=== PATIENT | male | born 1990 | race African-American/Black ===

== ENCOUNTER 2017-04-20 09:38 | Emergency (ER) | payer SELFPAY ==
[~2017-04-20] VITALS: Ht 167.6 cm; Wt 97.5 kg
[~2017-04-20 09:38] MED LIST: HYDR-971 PO; ONDA4TAB10 PO; ONDA4TAB7 PO
--- NOTE | 2017-04-20 09:54 | PHYS DOC ---
General Chief Complaint: FLANK PAIN Stated Complaint: flank pain Time Seen by MD: 09:48 Source: patient Exam Limitations: no limitations Problems: History of Present Illness Initial Comments Patient is a 26-year-old male who comes to the ED complaining of flank pain. Patient states that for the past 2 days he's work had worsening flank pain. He states that it comes and goes is described as sharp and crampy, today it is radiating to his left groin and testicle. He's had urinary hesitancy no fever chills sweats or myalgias. No prior history of kidney stones, no bowel symptoms no nausea vomiting. No pre-arrival treatment no exacerbating or relieving factors. Symptoms are described as severe. Timing/Duration: 24 hours Severity: severe Modifying Factors: improves with other Associated Symptoms: other Allergies: Coded Allergies: No Known Drug Allergies (Unverified , 09/07/13) Past Medical History Medical History: no pertinent history Surgical History: other (hip) Social History Smoker: non-smoker Alcohol: none Drugs: none Review of Systems Constitutional: denies chills, denies diaphoresis, denies fever Respiratory: denies cough, denies shortness of breath Cardiovascular: denies chest pain, denies palpitations Gastrointestinal: see HPI Genitourinary: see HPI Musculoskeletal: see HPI Psychiatric/Neurological: denies headache, denies numbness, denies paresthesia Physical Exam General Appearance: no apparent distress, obese Ear, Nose, Throat: hearing grossly normal, normal ENT inspection Neck: non-tender, supple Respiratory: normal breath sounds, no respiratory distress Cardiovascular: normal peripheral pulses, regular rate, rhythm Gastrointestinal: normal bowel sounds, non tender, soft Back: no CVA tenderness, no vertebral tenderness Extremities: normal range of motion, non-tender, normal inspection Neurologic/Psychiatric: executive wellness programs director II-XII nml as tested, no motor/sensory deficits, alert, normal mood/affect, oriented x 3 Skin: normal color, warm/dry Orders, Labs, Meds PATIENT: CEE GUZMAN ACCOUNT: [id number] : 1990 LOCATION: ER AGE: 26 SEX: M EXAM STATUS: PRE ER ORD. PHYSICIAN: YOUSUF MANN DO REASON: flank pain r/o stone PROCEDURE: CT ABDOMEN PELVIS WO CONTRAST CT of the abdomen and pelvis without contrast, 04/20/2017: History: Left flank pain, right inguinal pain Noncontrast scans were obtained utilizing the renal stone protocol. No intrarenal calculi are identified. The renal collecting systems and ureters are not dilated. No ureteral calculus is evident. The partially filled urinary bladder shows no abnormality. The unopacified liver is unremarkable. No gallbladder abnormality is seen. The pancreas is unremarkable. The spleen is of normal size. The bowel loops are not dilated. The appendix is visualized and shows no abnormality. No abdominal adenopathy is seen. No free fluid or free air is evident in the abdomen or pelvis. There are mildly prominent inguinal lymph nodes. The largest of these lies on the left and measures 30 x 18 x 13 mm. There appears to be minimal streaky inflammation in the adjacent fat. These nodes have increased in size since 07/06/2016. There is no CT evidence of an inguinal hernia. There is a surgical pin in the left femoral head/neck. IMPRESSION: 1. No urinary tract calculi are identified. 2. Borderline enlarged inguinal lymph nodes, left greater than right. PQRS Compliance Statement: One or more of the following individualized dose reduction techniques were utilized for this examination: 1. Automated exposure control 2. Adjustment of the mA and/or kV according to patient size 3. Use of iterative reconstruction technique DICTATED AND SIGNED BY: ALEJANDRA GERBER MD DATE: 04/20/17 1006 CC: PCP,NO; YOUSUF MANN DO ~ Labs unremarkable, hearing grossly positive for infection no blood. Given inguinal lymphadenopathy and presence of infection in the urine STI is likely. Patient received Rocephin intravenously and Zithromax 1 g by mouth has been ordered. We'll discharge with Pyridium and instructions for no sexual contact until he follows up with his doctor. He is advised to be tested for HIV as an outpatient expressed agreement and understanding with the treatment plan. Departure Time of Disposition: 10:43 Disposition: 01 HOME, SELF-CARE Diagnosis: urethritis Condition: GOOD Patient Instructions: Urethritis, Adult Additional Instructions: No sexual activity until follow-up with your doctor. Notify any sexual contacts of the possible need for testing. Have them follow- up with their doctor. Aggressive hydration to prevent dehydration. No driving or operating machinery while under the influence of sedative pain medications. You received Rocephin and Zithromax in the emergency department which should resolve presumed gonococcal or chlamydial infection. You will need to follow-up with your doctor for a recheck to ensure urine infection has cleared and to discuss HIV and other testing. Follow-up with your doctor in 3-5 days. Take these discharge instructions with you to that appointment. Return to ED with new or changing symptoms. YOUSUF MANN DO Apr 20, 2017 09:54
[2017-04-20] MEDS ORDERED: ONDANSETRON PF 4 MG/2 ML VIAL. IV ONE (10:00)
[2017-04-20] MEDS ORDERED: KETOROLAC 30 MG/ML VIAL. IV ONE (10:00)
[2017-04-20] MEDS ORDERED: HYDROmorphone PF 1 MG/ML DISP.SYRIN IV/SQ PRN (10:00)
[2017-04-20] MEDS ORDERED: cefTRIAXone SODIUM 1 GM VIAL IV ONE (10:01)
[2017-04-20] MEDS ORDERED: IV NORMAL SALINE 50ML 50 ML ONE (10:01)
[2017-04-20 10:12] LABS: BASO % 1 % (0-3); EOS % 0 % (0-3); HEMATOCRIT 41.1 % (39.0-53.0); HEMOGLOBIN 13.8 g/dL (13.0-17.5); LYMPH # 1.8 x10^3/uL (1.0-4.8); LYMPH % 20 % (24-48); MEAN CORPUSCULAR HEMOGLOBIN 26 pg (25-35); MEAN CORPUSCULAR HGB CONC 34 g/dL (31-37); MEAN CORPUSCULAR VOLUME 78 fL (79-100); MONO # 1.6 x10^3/uL (0.0-1.1); MONO % 18 % (0-9); NEUT # 5.4 x10^3uL (1.8-7.7); NEUT % 61 % (31-73); PLATELET COUNT 158 x10^3/uL (140-400); RED BLOOD COUNT 5.27 x10^6/uL (4.30-5.70); RED CELL DISTRIBUTION WIDTH 13.6 % (11.5-14.5); WHITE BLOOD COUNT 8.8 x10^3/uL (4.0-11.0)
[2017-04-20 10:17] LABS: CALCIUM 9.2 mg/dL (8.5-10.1); CREATININE 1.1 mg/dL (0.7-1.3); GFR 99.5; POTASSIUM 3.5 mmol/L (3.5-5.1)
[2017-04-20 10:21] LABS: BILIRUBIN,URINE NEG (NEG); CLARITY,URINE CLOUDY; COLOR,URINE YELLOW; GLUCOSE,URINE NEG (NEG)
[2017-04-20 10:22] LABS: BACTERIA,URINE MOD /HPF (0-FEW); NITRITE,URINE NEG (NEG); SQUAMOUS EPITHELIAL CELL,UR OCC /LPF; UROBILINOGEN,URINE 2 mg/dL (0.2 mg/dL); WBC,URINE >40 /HPF (0-4)
--- NOTE | 2017-04-20 10:23 | RAD ---
CT of the abdomen and pelvis without contrast, 04/20/2017: History: Left flank pain, right inguinal pain Noncontrast scans were obtained utilizing the renal stone protocol. No intrarenal calculi are identified. The renal collecting systems and ureters are not dilated. No ureteral calculus is evident. The partially filled urinary bladder shows no abnormality. The unopacified liver is unremarkable. No gallbladder abnormality is seen. The pancreas is unremarkable. The spleen is of normal size. The bowel loops are not dilated. The appendix is visualized and shows no abnormality. No abdominal adenopathy is seen. No free fluid or free air is evident in the abdomen or pelvis. There are mildly prominent inguinal lymph nodes. The largest of these lies on the left and measures 30 x 18 x 13 mm. There appears to be minimal streaky inflammation in the adjacent fat. These nodes have increased in size since 07/06/2016. There is no CT evidence of an inguinal hernia. There is a surgical pin in the left femoral head/neck. IMPRESSION: 1. No urinary tract calculi are identified. 2. Borderline enlarged inguinal lymph nodes, left greater than right. PQRS Compliance Statement: One or more of the following individualized dose reduction techniques were utilized for this examination: 1. Automated exposure control 2. Adjustment of the mA and/or kV according to patient size 3. Use of iterative reconstruction technique
[2017-04-20] MEDS ORDERED: AZITHROMYCIN 1 GM PACKET PO ONE (10:45)
[2017-04-20 11:00] VITALS: BP 111/53
[2017-04-20] MEDS ORDERED: PHENAZOPYRIDINE 100 MG TABLET. PO ONE (11:00)
== END 2017-04-20 11:20 | disposition home or self-care (01) ==
LOC: ER 09:38
DX: N34.2 Other urethritis (principal)
CPT/HCPCS: 36415; 74176; 80048; 81001; 85025; 87086; 96365; 96375; 99285; J0456; J0696; J1170; J1885; J2405

== ENCOUNTER 2021-01-22 03:42 | Emergency (ER) | payer SELFPAY ==
[~2021-01-22] VITALS: Ht 167.6 cm; Wt 93.4 kg
[~2021-01-22 03:42] MED LIST changes: +HYDR-3165 PO; -HYDR-971 PO
--- NOTE | 2021-01-22 03:54 | PHYS DOC ---
Past History Past Medical History: No Pertinent History Past Surgical History: No Surgical History Alcohol Use: None General Adult EDM: Chief Complaint: HEAD INJURY/TRAUMA HPI: HPI: ".. I was laying there trying to go to sleep.. and my teeth started hurting.. and I did hit my head yesterday.. when [place] was down at the park.. I hit it on a post.. I just turned around fast.. It did not knock me out.. ". " I need a place to sleep tonight..." Patient is a 31 year old male who presents with above hx and complaints of dental pain. Pt. has multiple dental caries gingivitis.. Patient localizes pain and teeth 29,28, and teeth 22,21 and 20 . Patient has no trismus. Patient denies any history of recent travel. No severe ill contacts. No history immunosuppression. Patient states on earlier head contusion he had no loss consciousness. Was active rest today without problem. Patient does not follow- up with primary care. Patient does smoke tobacco and marijuana. Review of Systems: Review of Systems: Constitutional: Denies fever or chills Eyes: Denies change in visual acuity HENT: Complains of dental pain Respiratory: Denies cough or shortness of breath Cardiovascular: Denies chest pain or edema GI: Denies abdominal pain, nausea, vomiting, bloody stools or diarrhea : Denies dysuria Musculoskeletal: Denies back pain or joint pain Integument: Denies rash Neurologic: Denies headache, focal weakness or sensory changes Endocrine: Denies polyuria or polydipsia Lymphatic: Denies swollen glands Psychiatric: Denies depression or anxiety Family History: Family History: Noncontributory to presentation Current Medications: Current Meds: See nursing for home meds Allergies: Allergies: Allergies Coded Allergies Type Severity Reaction Last Updated Verified No Known Drug Allergies 01/02/21 No Physical Exam: PE: Constitutional: , no acute distress, non-toxic appearance. [] HENT: Normocephalic, atraumatic, bilateral external ears normal, oropharynx moist, no oral exudates, nose normal. Multiple areas of dental decay and gingivitis. Localized dental pain as per HPI Eyes: PERRLA, EOMI, conjunctiva normal, no discharge. [] Neck: Normal range of motion, no tenderness, supple, no stridor. [] Cardiovascular:Heart rate regular rhythm, no murmur [] Lungs & Thorax: Bilateral breath sounds equal at apex on auscultation. Does have scattered wheezes. Abdomen: Bowel sounds normal, soft, no tenderness, no masses, no pulsatile masses. [] Skin: Warm, dry, no erythema, no rash. [] Back: No tenderness, no CVA tenderness. [] Extremities: No tenderness, no cyanosis, no clubbing, ROM intact, no edema. [] Neurologic: Alert and oriented X 3, normal motor function, normal sensory function, no focal deficits noted. DTRs +2 patella and brachial. Mobile Marketing Manager equal. No drift. Amatory without problems. Air conduction more than bone conduction 128 tuning fork. No lateralization. Distal vibratory. Psychologic: Affect normal, judgement normal, mood normal. [] EKG: EKG: [] Radiology/Procedures: Radiology/Procedures: [] Heart Score: C/O Chest Pain: N/A Risk Factors: Risk Factors: DM, Current or recent (<one month) smoker, HTN, HLP, family history of CAD, obesity. Risk Scores: Score 0 - 3: 2.5% MACE over next 6 weeks - Discharge Home Score 4 - 6: 20.3% MACE over next 6 weeks - Admit for Clinical Observation Score 7 - 10: 72.7% MACE over next 6 weeks - Early Invasive Strategies Course & Med Decision Making: Course & Med Decision Making Pertinent Labs and Imaging studies reviewed. (See chart for details) Patient must follow-up with a dentist or oral surgeon. Suspect he will need extraction of offending teeth. Patient take Keflex 500 mg 3 times a day. Follow-up primary care. Tylenol and ibuprofen for pain. Return if any concerns. Impression: 1 . Dental pain 2. Dental infection [] Dragon Disclaimer: Dragon Disclaimer: This electronic medical record was generated, in whole or in part, using a voice recognition dictation system. Departure Departure: Referrals: PCP,NO (PCP) Scripts Cephalexin (KEFLEX) 750 Mg Capsule 500 MG PO TID for dental infection for 10 Days, #20 CAP Prov: ZAY SALINAS MD 01/22/21 Franci Disclaimer This chart was dictated in whole or in part using Voice Recognition software in a busy, high-work load, and often noisy Emergency Department environment. It may contain unintended and wholly unrecognized errors or omissions. ZAY SALINAS MD Jan 22, 2021 03:54
[2021-01-22] MEDS ORDERED: CEPH750C9 PO (04:01)
[2021-01-22 04:21] VITALS: BP 118/74
[2021-01-22] MEDS ORDERED: CEPHALEXIN 250 MG CAPSULE PO ONE (04:30)
[2021-01-22] MEDS ORDERED: ACETAMINOPHEN 500 MG TABLET PO ONE (04:30)
== END 2021-01-22 04:26 | disposition home or self-care (01) ==
LOC: MERGE 03:42 → ER 03:42
DX: K04.7 Periapical abscess without sinus (principal); K02.9 Dental caries, unspecified; K05.10 Chronic gingivitis, plaque induced
CPT/HCPCS: 99283

== ENCOUNTER 2021-02-10 16:14 | Emergency (ER) | payer SELFPAY ==
[~2021-02-10] VITALS: Ht 167.6 cm; Wt 87.1 kg
[~2021-02-10 16:14] MED LIST changes: +CEPH750C9 PO
--- NOTE | 2021-02-10 16:44 | PHYS DOC ---
Past History Past Medical History: No Pertinent History Additional Past Medical Histor: ADHD, learning disability (JOSE A DYER APRN) Past Surgical History: Other Additional Past Surgical Histo: left hip surgery (JOSE A DYER APRN) Smoking: Cigarettes Alcohol Use: None Drug Use: Marijuana, Methamphetamine (JOSE A DYER APRN) General Adult EDM: Chief Complaint: HEAD INJURY/TRAUMA HPI: HPI: Patient is a 30-year-old male who presents to the ER for head injury. Patient reports that he was carrying a cutting board and fell backwards and hit the right side of his head with a cutting board. He is reporting mild lightheadedness. Patient denies loss of consciousness. He rates his pain 10 out of 10. No treatment prior to arrival. Patient denies vision changes, nausea, vomiting. Patient is ambulatory with a steady gait. (JOSE A DYER APRN) Review of Systems: Review of Systems: 14 body systems of the review of systems have been reviewed. See HPI for pertinent positive and negative responses, otherwise all other systems are negative, nonpertinent or noncontributory (JOSE A DYER APRN) Allergies: Allergies: Allergies Coded Allergies Type Severity Reaction Last Updated Verified No Known Drug Allergies 09/07/13 No (JOSE A DYER APRN) Physical Exam: PE: Constitutional: Well developed, well nourished, no acute distress, non-toxic appearance. [] HENT: Normocephalic, atraumatic, no obvious wounds or hematoma Eyes: PERRLA, 3 mm bilaterally, EOMI, conjunctiva normal, no discharge. [] Neck: Normal range of motion, no tenderness, supple, no stridor. [] Cardiovascular: Normal peripheral perfusion Lungs & Thorax: Normal work of breathing, no tachypnea Skin: Warm, dry, no erythema, no rash. [] Back: No tenderness, normal range of motion Extremities: No tenderness, no cyanosis, no clubbing, ROM intact, no edema. [] Neurologic: Alert and oriented X 3, normal motor function, normal sensory function, no focal deficits noted. [] Psychologic: Affect normal, judgement normal, mood normal. [] (JOSE A DYER APRN) Current Patient Data: Vital Signs: Vital Signs Date Time Temp Pulse Resp B/P (MAP) Pulse Ox O2 Delivery O2 Flow Rate FiO2 02/10/21 16:29 97.4 58 16 108/47 100 Room Air (JOSE A DYER APRN) EKG: EKG: [] (JOSE A DYER APRN) Radiology/Procedures: Radiology/Procedures: PROCEDURE: CT HEAD WO CONTRAST INDICATION: Reason: head injury / Spl. Instructions: / History: COMPARISON: None. TECHNIQUE: Axial CT images obtained through the head without intravenous contrast. One or more of the following individualized dose reduction techniques were utilized for this examination: 1. Automated exposure control; 2. Adjustment of the mA and/or kV according to patient size; 3. Use of iterative reconstruction technique. FINDINGS: No intracranial hemorrhage. No significant midline shift. Ventricles and sulci are unremarkable. No acute osseous abnormality. IMPRESSION: * No acute intracranial hemorrhage. Electronically signed by: Sol Regan MD (02/10/2021 5:07 PM) [id number] DICTATED AND SIGNED BY: SOL REGAN MD DATE: 02/10/21 1700 CC: EMERGENCY,DEPARTMENT; JOSE A DYER APRN; PCP,NO ~MTH0 0 [] (JOSE A DYER APRN) Heart Score: C/O Chest Pain: No Risk Factors: Risk Factors: DM, Current or recent (<one month) smoker, HTN, HLP, family history of CAD, obesity. Risk Scores: Score 0 - 3: 2.5% MACE over next 6 weeks - Discharge Home Score 4 - 6: 20.3% MACE over next 6 weeks - Admit for Clinical Observation Score 7 - 10: 72.7% MACE over next 6 weeks - Early Invasive Strategies (JOSE A DYER APRN) Course & Med Decision Making: Course & Med Decision Making Pertinent Labs and Imaging studies reviewed. (See chart for details) [] Patient is a 30-year-old male being seen in the ER following a head injury. A CT scan was done of his head showed no acute findings. patient advised to take Tylenol and ibuprofen for pain. Patient was treated for pain in the ER. I discussed with patient all findings and diagnostic testing as well as the need to follow-up with PCP for further evaluation and treatment or return to the ER i f any new or worsening symptoms. Strict return precautions were also discussed at length. Patient voiced understanding and agreement with the plan. Patient is hemodynamically stable at the time of disposition. (JOSE A DYER APRN) Franci Disclaimer: Franci Disclaimer: This electronic medical record was generated, in whole or in part, using a voice recognition dictation system. (JOSE A DYER APRN) Attending Co-Sign The patient was seen and interviewed as well as examined at the bedside. The chart was reviewed. The case was discussed. Agree with the plan of care. (ISIDRO PHIPPS DO) Departure Departure: Impression: Primary Impression: Head injury Qualified Codes: S09.90XA - Unspecified injury of head, initial encounter Disposition: HOME / SELF CARE / HOMELESS Condition: GOOD Referrals: PCP,NO (PCP) Patient Instructions: Head Injury, Adult Additional Instructions: You were seen in the ER following a head injury. A CT scan was performed of your head and it was negative for any acute findings. You likely does have a soft tissue injury of your head. You can take Tylenol or ibuprofen for pain. Application of ice may help with your pain also. Please return to the ER if you develop worsening of your pain, uncontrollable nausea or vomiting, blurred vision, severe dizziness or you pass out. EMERGENCY DEPARTMENT GENERAL DISCHARGE INSTRUCTIONS Thank you for coming to [facility] (ED) today and trusting us with you care. We trust that you had a positivie experience in our Emergency Department. If you wish to speak to the department management, you may call the director at [phone]. YOUR FOLLOW UP INSTRUCTIONS ARE FOLLOWS: 1. Do you have a private Doctor? If you do not have a private doctor, please ask for a resource list of physicians or clinics that may be able to assist you with follow up care. 2. The Emergency Physician has interpreted your x-rays. The X-Ray specialist will also review them. If there is a change in the findings, you will be notified in 48 hours when at all possible. 3. A lab test or culture has been done, your results will be reviewed and you will be notified if you need a change in treatment. ADDITIONAL INSTRUCTIONS AND INFORMATION: 1. Your care today has been supervised by a physician who is specially trained in emergency care. Many problems require more than one evaluation for a complete diagnosis and treatment. We recommend that you schedule your follow up appointment as recommended to ensure complete treatment of you illness or injury. If you are unable to obtain follow up care and continue to have a problem, or if your condition worsens, we recommend that you return to the ED. 2. We are not able to safely determine your condition over the phone nor are we able to give sound medical advice over the phone. For these safety reasons, if you call for medical advice we will ask you to come to the ED for further evaluation. 3. If you have any questions regarding these discharge instructions please call the ED at [phone]. SAFETY INFORMATION: In the interest of safety, wellness, and injury prevention; we encourage you to wear your sealbelt, if you smoke; quite smoking, and we encourage family to use a protective helmet for bicycling and other sporting events that present an increased risk for head injury. IF YOUR SYMPTOMS WORSEN OR NEW SYMPTOMS DEVELOP, OR YOU HAVE CONCERNS ABOUT YOUR CONDITION; OR IF YOUR CONDITION WORSENS WHILE YOU ARE WAITING FOR YOUR FOLLOW UP APPOINTMENT; EITHER CONTACT YOUR PRIMARY CARE DOCTOR, THE PHYSICIAN WHOSE NAME AND NUMBER YOU WERE GIVEN, OR RETURN TO THE ED IMMEDIATELY. JOSE A DYER APRN Feb 10, 2021 16:44 ISIDRO PHIPPS DO Feb 11, 2021 07:03
[2021-02-10] MEDS ORDERED: IBUPROFEN 600 MG TABLET. PO ONE (16:45)
--- NOTE | 2021-02-10 17:10 | RAD ---
INDICATION: Reason: head injury / Spl. Instructions: / History: COMPARISON: None. TECHNIQUE: Axial CT images obtained through the head without intravenous contrast. One or more of the following individualized dose reduction techniques were utilized for this examinat ion: 1. Automated exposure control; 2. Adjustment of the mA and/or kV according to patient size; 3 . Use of iterative reconstruction technique. FINDINGS: No intracranial hemorrhage. No significant midline shift. Ventricles and sulci are unremarkable. No acute osseous abnormality. IMPRESSION: * No acute intracranial hemorrhage. Electronically signed by: Tony Regan MD (02/10/2021 5:07 PM) [id number]
[2021-02-10 17:30] VITALS: BP 110/61
== END 2021-02-10 17:36 | disposition home or self-care (01) ==
LOC: ER 16:14
DX: S09.90XA Unspecified injury of head, initial encounter (principal); R42 Dizziness and giddiness; F17.210 Nicotine dependence, cigarettes, uncomplicated; W18.39XA Other fall on same level, initial encounter; Y93.89 Activity, other specified; Y92.89 Other specified places as the place of occurrence of the external cause; Y99.8 Other external cause status
CPT/HCPCS: 70450; 99284-25

== ENCOUNTER 2021-09-02 10:23 | Emergency (ER) | payer SELFPAY ==
[~2021-09-02] VITALS: Ht 167.6 cm; Wt 91.0 kg
[2021-09-02 10:28] VITALS: BP 126/85
[2021-09-02] MEDS ORDERED: ONDANSETRON ODT 4 MG TAB.RAPDIS PO ONE (11:30)
--- NOTE | 2021-09-02 11:49 | PHYS DOC ---
Past History Past Medical History: No Pertinent History Additional Past Medical Histor: ADHD, learning disability (KEYA ROTH APRN) Past Surgical History: Other Additional Past Surgical Histo: left hip surgery (KEYA ROTH APRN) Smoking: Cigarettes Alcohol Use: None Drug Use: Marijuana, Methamphetamine Social History Narrative: occasional (KEYA ROTH APRN) General Adult EDM: Chief Complaint: PSYCH EVALUATION HPI: HPI: Patient is a 31-year-old male who presents for psych evaluation from the [facility]. Patient states that his roommate told him he was not going to build to live in his home if he did not get back on his medications. Patient has not been on his medications for the last couple of weeks. Patient is post to be taking medication for bipolar disorder. Patient denies all complaints. Denies suicidal or homicidal ideation. Patient's history have ADHD, bipolar disorder. (KEYA ROTH APRN) Review of Systems: Review of Systems: ROS At least 10 ROS systems have been reviewed and are negative except as documented in the HPI. General: Negative except as outlined in HPI above. Skin: Negative except as outlined in HPI above. HEENT: Negative except as outlined in HPI above. Neck: Negative except as outlined in HPI above. Respiratory: Negative except as outlined in HPI above.. Cardiovascular: Negative except as outlined in HPI above. Abdomen: Negative except as outlined in HPI above. : Negative except as outlined in HPI above. Back/MSK: Negative except as outlined in HPI above. Neuro: Negative except as outlined in HPI above. Psych: Negative except as outlined in HPI above. (KEYA ROTH APRN) Current Medications: Current Meds: Current Medications Medications (Trade) Dose Ordered Sig/Aashish Start Time Stop Time Status Last Admin Dose Admin Ondansetron HCl (Zofran Odt) 4 mg 1X ONCE 09/02/21 11:30 09/02/21 11:39 DC (KEYA ROTH APRN) Allergies: Allergies: Allergies Coded Allergies Type Severity Reaction Last Updated Verified No Known Drug Allergies 09/07/13 No (KEYA ROTH APRN) Physical Exam: PE: Constitutional: Well developed, well nourished, no acute distress, non-toxic appearance, agitated. HENT: Normocephalic, bilateral external ears normal Eyes: PERRLA,conjunctiva normal, no discharge. Neck: Normal range of motion, no tenderness Cardiovascular:Heart rate regular rhythm, no murmur Lungs & Thorax: Bilateral breath sounds clear to auscultation Abdomen: Bowel sounds normal, soft, no tenderness Skin: Warm, dry, no erythema, no rash Back: No tenderness, no CVA tenderness. Extremities: No tenderness, no cyanosis, no clubbing, ROM intact, no edema. Neurologic: Alert and oriented X 3, normal motor function, normal sensory function, no focal deficits noted. Psychologic: Affect normal, anxious mood, agitated (KEYA ROTH APRN) Current Patient Data: Vital Signs: Vital Signs Date Time Temp Pulse Resp B/P (MAP) Pulse Ox O2 Delivery O2 Flow Rate FiO2 09/02/21 10:28 98.9 88 18 126/85 (99) 100 (KEYA ROTH APRN) EKG: EKG: [] (KEYA ROTH APRN) Radiology/Procedures: Radiology/Procedures: [] (KEYA ROTH APRN) Heart Score: C/O Chest Pain: No Risk Factors: Risk Factors: DM, Current or recent (<one month) smoker, HTN, HLP, family hi story of CAD, obesity. Risk Scores: Score 0 - 3: 2.5% MACE over next 6 weeks - Discharge Home Score 4 - 6: 20.3% MACE over next 6 weeks - Admit for Clinical Observation Score 7 - 10: 72.7% MACE over next 6 weeks - Early Invasive Strategies (KEYA ROTH APRN) Course & Med Decision Making: Course & Med Decision Making Pertinent Labs and Imaging studies reviewed. (See chart for details) [] 31-year-old male presents [facility]. Patient's been told by his uncle that he needs to get back on his medications or he is no longer allowed to live with him. Patient has been off his Abilify for the last few weeks due to not having a prescription. Patient states he does not like taking it because he does not like how it makes him feel. Patient is wanting to get back on his ADHD medication. Patient does report using meth recently because he felt like it helped with his symptoms. Patient is denying SI or HI. RN spoke with counselor at the [facility] who stated he sent patient to the ER to have his medications managed. Patient has no complaints at this time. Premium Note Interest Calculator Clerk came to the emergency room, Krystal, to speak with patient and to bring up his Abilify. Krystal also is going to try and get an appointment for patient to follow-up with a psychiatrist to adjust medications and possibly start him on a different medication. Patient has an appointment on the with the [facility] for a follow-up. Patient is appreciative and agrees with discharge plan. (KEYA ROTH APRN) Franci Disclaimer: Franci Disclaimer: This electronic medical record was generated, in whole or in part, using a voice recognition dictation system. (KEYA ROTH APRN) Attending Co-Sign The patient was seen and interviewed as well as examined at the bedside. The chart was reviewed. The case was discussed. Agree with the plan of care. (ISIDRO PHIPPS DO) Departure Departure: Impression: Primary Impression: Evaluation by medical service required Disposition: HOME / SELF CARE / HOMELESS Condition: STABLE Referrals: PCP,NO (PCP) Patient Instructions: Mood Disorders Additional Instructions: You were seen in the emergency room after being referred from the [facility]. Your automotive technician instructor met you in the emergency room and provided you with your medications to take at home. You have a follow-up appointment scheduled for the . Please make sure that you make it to your appointment on the . Please return to the emergency room if you have worsening symptoms or concerns. EMERGENCY DEPARTMENT GENERAL DISCHARGE INSTRUCTIONS Thank you for coming to [facility] (ED) today and trusting us with you care. We trust that you had a positivie experience in our Emergency Department. If you wish to speak to the department management, you may call the director at [phone]. YOUR FOLLOW UP INSTRUCTIONS ARE FOLLOWS: 1. Do you have a private Doctor? If you do not have a private doctor, please ask for a resource list of physicians or clinics that may be able to assist you with follow up care. 2. The Emergency Physician has interpreted your x-rays. The X-Ray specialist will also review them. If there is a change in the findings, you will be notified in 48 hours when at all possible. 3. A lab test or culture has been done, your results will be reviewed and you will be notified if you need a change in treatment. ADDITIONAL INSTRUCTIONS AND INFORMATION: 1. Your care today has been supervised by a physician who is specially trained in emergency care. Many problems require more than one evaluation for a complete diagnosis a nd treatment. We recommend that you schedule your follow up appointment as recommended to ensure complete treatment of you illness or injury. If you are unable to obtain follow up care and continue to have a problem, or if your condition worsens, we recommend that you return to the ED. 2. We are not able to safely determine your condition over the phone nor are we able to give sound medical advice over the phone. For these safety reasons, if you call for medical advice we will ask you to come to the ED for further evaluation. 3. If you have any questions regarding these discharge instructions please call the ED at [phone]. SAFETY INFORMATION: In the interest of safety, wellness, and injury prevention; we encourage you to wear your sealbelt, if you smoke; quite smoking, and we encourage family to use a protective helmet for bicycling and other sporting events that present an increased risk for head injury. IF YOUR SYMPTOMS WORSEN OR NEW SYMPTOMS DEVELOP, OR YOU HAVE CONCERNS ABOUT YOUR CONDITION; OR IF YOUR CONDITION WORSENS WHILE YOU ARE WAITING FOR YOUR FOLLOW UP APPOINTMENT; EITHER CONTACT YOUR PRIMARY CARE DOCTOR, THE PHYSICIAN WHOSE NAME AND NUMBER YOU WERE GIVEN, OR RETURN TO THE ED IMMEDIATELY. KEYA ROTH APRN Sep 02, 2021 11:49 ISIDRO PHIPPS DO Sep 03, 2021 19:49
== END 2021-09-02 11:55 | disposition home or self-care (01) ==
LOC: ER 10:23
DX: Z00.8 Encounter for other general examination (principal); F90.9 Attention-deficit hyperactivity disorder, unspecified type; F17.210 Nicotine dependence, cigarettes, uncomplicated
CPT/HCPCS: 99281

== ENCOUNTER 2021-11-16 08:26 | Emergency (ER) | payer SELFPAY ==
[~2021-11-16] VITALS: Ht 167.6 cm; Wt 91.0 kg
[2021-11-16 08:36] VITALS: BP 126/85
--- NOTE | 2021-11-16 09:04 | RAD ---
EXAM: Right foot, 2 views. HISTORY: Pain. COMPARISON: None. FINDINGS: 2 views of the right foot are obtained. There is no acute fracture, dislocation or subluxat ion. There is mild edematous spurring involving the anterior distal tibial metaphysis. There is moder ate degenerative spurring involving the talonavicular joint. IMPRESSION: 1. Moderate hindfoot osteoarthritis. 2. No acute osseous finding. Electronically signed by: Odette Simmons MD (11/16/2021 9:01 AM) [id number]
--- NOTE | 2021-11-16 09:19 | PHYS DOC ---
Past History Past Medical History: No Pertinent History Additional Past Medical Histor: ADHD, learning disability Past Surgical History: Other Additional Past Surgical Histo: left hip surgery Smoking: Cigarettes Alcohol Use: None Drug Use: Marijuana, Methamphetamine Adult General Chief Complaint Chief Complaint: FOOT INJURY PAIN HPI HPI Patient presents with complaint of right foot pain, states he is concerned that he may have a foreign body in his right third toe. Patient is homeless and states he does walk barefoot. Patient is unsure of any specific incident or injury. Review of Systems Review of Systems Constitutional: Denies fever or chills [] Eyes: Denies change in visual acuity, redness, or eye pain [] HENT: Denies nasal congestion or sore throat [] Respiratory: Denies cough or shortness of breath [] Cardiovascular: No additional information not addressed in HPI [] GI: Denies abdominal pain, nausea, vomiting, bloody stools or diarrhea [] : Denies dysuria or hematuria [] Musculoskeletal: Right foot pain Integument: Denies rash or skin lesions [] Neurologic: Denies headache, focal weakness or sensory changes [] Endocrine: Denies polyuria or polydipsia [] All other systems were reviewed and found to be within normal limits, except as documented in this note. Allergies Allergies Allergies Coded Allergies Type Severity Reaction Last Updated Verified No Known Drug Allergies 09/07/13 No Physical Exam Physical Exam Constitutional: Well developed, well nourished, no acute distress, non-toxic appearance. [] HENT: Normocephalic, atraumatic, bilateral external ears normal, oropharynx moist, no oral exudates, nose normal. [] Eyes: PERRLA, EOMI, conjunctiva normal, no discharge. [] Neck: Normal range of motion, no tenderness, supple, no stridor. [] Cardiovascular:Heart rate regular rhythm, no murmur [] Lungs & Thorax: Bilateral breath sounds clear to auscultation [] Abdomen: Bowel sounds normal, soft, no tenderness, no masses, no pulsatile masses. [] Skin: Warm, dry, no erythema, no rash. [] Back: No tenderness, no CVA tenderness. [] Extremities: Right foot with no deformity noted to the right third toe no redness, no puncture wound no swelling Neurologic: Alert and oriented X 3, normal motor function, normal sensory function, no focal deficits noted. [] Psychologic: Affect normal, judgement normal, mood normal. [] Current Patient Data Vital Signs Vital Signs Date Time Temp Pulse Resp B/P (MAP) Pulse Ox O2 Delivery O2 Flow Rate FiO2 11/16/21 08:36 97.8 63 18 126/85 (99) 99 Room Air EKG EKG [] Radiology/Procedures Radiology/Procedures [] Heart Score C/O Chest Pain: N/A Risk Factors: Risk Factors: DM, Current or recent (<one month) smoker, HTN, HLP, family history of CAD, obesity. Risk Scores: Risk Factors: DM, Current or recent (<one month) smoker, HTN, HLP, family history of CAD, obesity. Course & Med Decision Making Course & Med Decision Making Pertinent Labs and Imaging studies reviewed. (See chart for details) [] Dragon Disclaimer Dragon Disclaimer This electronic medical record was generated, in whole or in part, using a voice recognition dictation system. Departure Departure: Impression: Primary Impression: Right foot pain Disposition: HOME / SELF CARE / HOMELESS Condition: GOOD Referrals: PCP,NO (PCP) Patient Instructions: Foot Contusion Additional Instructions: Continue Tylenol or Motrin for pain. Return for worsening symptoms or other concerns VIKI RAZO MD November 16, 2021 09:19
== END 2021-11-16 09:50 | disposition home or self-care (01) ==
LOC: ER 08:26
DX: M79.671 Pain in right foot (principal); F17.210 Nicotine dependence, cigarettes, uncomplicated; Z59.00 Homelessness unspecified
CPT/HCPCS: 73620; 99283

== ENCOUNTER → 2021-11-17 | Emergency (ER) | payer SELFPAY ==
[~2021-11-17] VITALS: Ht 167.6 cm; Wt 91.0 kg
--- NOTE | 2021-11-17 20:24 | PHYS DOC ---
Past History Past Medical History: No Pertinent History, Anxiety, Schizophrenia Additional Past Medical Histor: ADHD, learning disability Past Surgical History: Other Additional Past Surgical Histo: left hip surgery Smoking: Cigarettes Alcohol Use: None Drug Use: Marijuana, Methamphetamine General Adult HPI: HPI: " I was eating a bag of chips.. cheese samuel chips.. at the gas station... I felt something in my mouth and I spit it out and it was a snake,,, it had bitten the on my back left tooth area.. lower tooth.. ". " I figured. .. I had better get checked out..." Patient is a 31 year old MALE who presents with above hx and complaints eating a snack that was in his bag of chips. Patient does not know the length of the snake or the color of the snake only that it bit his lower gum at his left lower molar area. There is no apparent lesion there. Patient does have a history of schizophrenia and has missed several weekly injections.. Patient denies any recent drug use. Patient does state he has hallucinations when he is off his meds for very long. Patient follows at the counseling center. Pt. has hx ADHD, developmental disability and anxiety. Review of Systems: Review of Systems: Constitutional: Denies fever or chills Eyes: Denies change in visual acuity HENT: Denies nasal congestion or sore throat . Complains of left lower snake bite on the inside of his mouth. Respiratory: Denies cough or shortness of breath Cardiovascular: Denies chest pain or edema GI: Denies abdominal pain, nausea, vomiting, bloody stools or diarrhea : Denies dysuria Musculoskeletal: Denies back pain or joint pain Integument: Denies rash Neurologic: Denies headache, focal weakness or sensory changes Endocrine: Denies polyuria or polydipsia Lymphatic: Denies swollen glands Psychiatric: Denies depression or anxiety Family History: Family History: Noncontributory to presentation Current Medications: Current Meds: See nursing for home meds Allergies: Allergies: Allergies Coded Allergies Type Severity Reaction Last Updated Verified No Known Drug Allergies 09/07/13 No Physical Exam: PE: Constitutional: Well developed, well nourished, emotional distress, non-toxic appearance. [] HENT: Normocephalic, atraumatic, bilateral external ears normal, oropharynx moist, no oral exudates, nose normal. [] Eyes: PERRLA, EOMI, conjunctiva normal, no discharge. [] Neck: Normal range of motion, no tenderness, supple, no stridor. [] Cardiovascular:Heart rate regular rhythm, no murmur [] Lungs & Thorax: Bilateral breath sounds clear to auscultation [] Abdomen: Bowel sounds normal, soft, no tenderness, no masses, no pulsatile masses. [] Skin: Warm, dry, no erythema, no rash. [] Back: No tenderness, no CVA tenderness. [] Extremities: No tenderness, no cyanosis, no clubbing, ROM intact, no edema. [] Neurologic: Alert and oriented X 3, normal motor function, normal sensory f unction, no focal deficits noted. [] Psychologic: Affect anxious, judgement normal, mood normal. Does have history of past hallucinations. History of schizophrenia. No history history of EKG: EKG: [] Radiology/Procedures: Radiology/Procedures: [] Heart Score: C/O Chest Pain: N/A Risk Factors: Risk Factors: DM, Current or recent (<one month) smoker, HTN, HLP, family history of CAD, obesity. Risk Scores: Score 0 - 3: 2.5% MACE over next 6 weeks - Discharge Home Score 4 - 6: 20.3% MACE over next 6 weeks - Admit for Clinical Observation Score 7 - 10: 72.7% MACE over next 6 weeks - Early Invasive Strategies Course & Med Decision Making: Course & Med Decision Making Pertinent Labs and Imaging studies reviewed. (See chart for details) Patient requesting discharge after in the ED a few minutes. Impression: 1. Suspect visual hallucination 2. Patient has history of schizophrenia 3. Patient has history of medical noncompliance with his Depo and Abilify weekly injection meds at the counseling center 4. Hx. ADHD 5. Hx. of Anxiety 6. Hx. of developmental disability [] Dragon Disclaimer: Dragon Disclaimer: This electronic medical record was generated, in whole or in part, using a voice recognition dictation system. Departure Departure: Referrals: PCP,NO (PCP) Dragon Disclaimer This chart was dictated in whole or in part using Voice Recognition software in a busy, high-work load, and often noisy Emergency Department environment. It may contain unintended and wholly unrecognized errors or omissions. ZAY SALINAS MD November 17, 2021:24
[2021-11-17 20:45] VITALS: BP 115/55
== END | disposition home or self-care (01) ==
LOC: ER 20:04
DX: R44.3 Hallucinations, unspecified (principal); F20.9 Schizophrenia, unspecified; F90.9 Attention-deficit hyperactivity disorder, unspecified type; F41.9 Anxiety disorder, unspecified; F17.210 Nicotine dependence, cigarettes, uncomplicated
CPT/HCPCS: 99281